=== PATIENT | male | born 1950 | race Caucasian/White ===

== ENCOUNTER 2021-07-31 11:16 | Outpatient (CLI) | payer MEDICARE, SELFPAY ==
[2021-07-31 12:25] LABS: INR 1.96 (0.8-1.2)
== END 2021-07-31 11:17 | disposition home or self-care (01) ==
PROVIDERS: Visit Provider Internal Medicine
DX: I48.19 Other persistent atrial fibrillation (principal)
CPT/HCPCS: 85610

== ENCOUNTER 2021-08-25 09:52 | Outpatient (CLI) | payer MEDICARE, SELFPAY ==
[2021-08-25 10:30] LABS: INR 3.59 (0.8-1.2)
== END 2021-08-25 09:53 | disposition home or self-care (01) ==
LOC: LAB 10:00
PROVIDERS: Visit Provider Internal Medicine
DX: I48.19 Other persistent atrial fibrillation (principal)
CPT/HCPCS: 85610

== ENCOUNTER 2021-09-15 12:40 | Outpatient (CLI) | payer MEDICARE, SELFPAY ==
[2021-09-15 13:24] LABS: INR 3.12 (0.8-1.2)
== END 2021-09-15 12:41 | disposition home or self-care (01) ==
LOC: LAB 12:41
PROVIDERS: Visit Provider Internal Medicine
DX: I48.19 Other persistent atrial fibrillation (principal)
CPT/HCPCS: 36415; 85610

== ENCOUNTER 2021-10-23 09:40 | Outpatient (CLI) | payer MEDICARE, SELFPAY ==
[2021-10-23 10:38] LABS: Partial Thromboplastin Time 40.5 SECONDS (23.9-36.7)
== END 2021-10-23 09:41 | disposition home or self-care (01) ==
PROVIDERS: Visit Provider Internal Medicine
DX: I48.19 Other persistent atrial fibrillation (principal)
CPT/HCPCS: 85730

== ENCOUNTER 2021-11-23 10:23 | Outpatient (CLI) | payer MEDICARE, SELFPAY ==
[2021-11-23 12:22] LABS: INR 2.04 (0.8-1.2)
== END 2021-11-23 10:24 | disposition home or self-care (01) ==
PROVIDERS: PCP Family Medicine; Visit Provider Internal Medicine
DX: I48.19 Other persistent atrial fibrillation (principal)
CPT/HCPCS: 36415; 85610